=== PATIENT | male | born 2000 | race Caucasian/White ===

== ENCOUNTER 2023-05-14 19:53 | Emergency (ER) | payer SELFPAY ==
[2023-05-14 20:25] VITALS: BP 113/62; PULSE 67; RESP 16; TEMP 37.1; O2SAT 99; BMI 18.2
--- NOTE | 2023-05-14 20:28 | ED.GENADULT ---
HPI - General Adult General Chief complaint: Animal Bite Stated complaint: Laceration on mouth Time Seen by Provider: 05/14/23 20:57 Source: patient and family Mode of arrival: ambulatory Limitations: no limitations History of Present Illness HPI narrative: In comes to the emergency room accompanied by his mother. Earlier today, patient has dogs got into a fight, patient tried breaking up a fight, in the process he got bitten in the lower lip. Patient states that he is up-to-date with his immunizations including Tdap. Also, patient states that his dogs are up to date with her immunizations including rabies. Related Data Previous Rx's Medication Instructions Recorded amoxicillin 500 mg-potassium 1 tab PO BID #13 tabs 05/14/23 clavulanate 125 mg tablet (Augmentin) Allergies Allergy/AdvReac Type Severity Reaction Status Date / Time No Known Allergies Allergy Verified 05/14/23 20:25 [No Known Allergies*] Review of Systems Review of Systems: Constitutional : No Weight loss, No Fever, No Chills, No Night Sweats, No Fatigue, No Malaise ENT/Mouth : No Hearing loss, No Ear Pain, No Nasal Congestion, No Sinus Pain, No Hoarseness, No sore throat, No Rhinorrhea, No Swallowing Difficulty Eyes: No Eye Pain, No Swelling, No Redness, No Foreign Body, No Discharge, No Vision Changes Cardiovascular : No Chest Pain, No SOB, No Dyspnea on Exertion, No Orthopnea, No Edema, No Palpitations Respiratory : No Cough, No Sputum, No Wheezing, No Smoke Exposure, No Dyspnea Gastrointestinal : No Nausea, No Vomiting, No Diarrhea, No Constipation, No abdominal Pain, No Hematochezia, No Melena Genitourinary : no irregular bleeding, No Dysuria, No Urinary Frequency, No Hematuria, No Urinary Incontinence, No Urgency, No Flank Pain, No Urinary Flow Changes, No Hesitancy Musculoskeletal : No joint pain, No Myalgias, No Joint Swelling Skin : 0.5 cm vertical laceration in lower lip Neuro : No Weakness, No Numbness, No Paresthesias, No Loss of Consciousness, No Dizziness, No Headache Psych : No Anxiety/Panic, No Depression, No SI/HI/AH/VH, No Social Issues, Heme/Lymph: No Bruising, No Bleeding,No Lymphadenopathy Endocrine : No Polyuria, No Polydipsia, No Temperature Intolerance [facility] Social History Social History Advance Directives: No Advance Directives Information Provided: Yes Physical Exam ED Vital Signs: Vital Signs - 24 hr 05/14/23 20:25 Temperature 98.7 F Pulse Rate 67 Respiratory Rate 16 Blood Pressure 113/62 Pulse Oximetry 99 Oxygen Delivery Method Room Air BMI result Body Mass Index 18.2 Const Other: Appearance: Alert. Oriented X3. No acute distress. Eyes: Pupils equal, round and reactive to light. ENT: Pharynx normal. In the lower lip, there is a 0.5 cm vertical puncture wound/laceration/dog bite Neck: Normal inspection. Neck supple. No lymph nodes noted. No crepitus CVS: Normal heart rate and rhythm. Pulses normal. Normal S1 and S2 Respiratory: No respiratory distress. Breath sounds normal. No Wheezing. No rales Abdomen: Soft and nontender. No rigidity. No distention. Skin: Skin warm and dry. Normal skin color. Normal skin turgor. Extremities: No lower extremity edema. No Lacerations. No Rash Neuro: Oriented X 3. No motor deficit. No sensory deficit. Moving all extremities. No slurred speech. CN 2 through 12 grossly intact Psych: calm, cooperative, normal affect Course Course Course Narrative: This is an RME: Additional HPI, ROS, PE not included below will be deferred to primary provider. This is a 22-year-old male presenting to the emergency department with complaints of lower lip laceration since today. Patient states that he was breaking up a fight between his dogs and a dog bit his lower lip. Dog is up-to-date with rabies. Laceration likely needs suturable repair. Plan: Further ER evaluation needed with wound repair. - Procedures Laceration Laceration 1: Site: lip Size (cm): 0.5 Description: linear Depth: simple, single layer Amount of anesthesia used (mL): 1 Skin layer closed with: nylon Size (cm): 6-0 Number of sutures: 3 Medical Decision Making Medical Decision Making [facility] Narrative: -patient receive a dose of Augmentin in the ED -patient id 3 stitches, tolerated well the procedure Discharge Plan Discharge Clinical Impression: Laceration of lower lip, Dog bite Patient Disposition: Home, Self-Care Instructions: Animal Bite (ED), Care For Your Stitches (ED) Additional Instructions: Your stitches need to be removed in 7-10 days. Make sure you finish the entire course of antibiotics. For stitches removal, it can be done at your primary care physician's office, urgent care or in the emergency room. Please follow-up with your primary care physician tomorrow. If you have any worsening or new symptoms, please return to the emergency room or call 911 Prescriptions: New amoxicillin-pot clavulanate [Augmentin] 500-125 mg tablet 1 tab PO BID Qty: 13 0RF
--- NOTE | 2023-05-14 21:00 | PC.NURSE ---
this rn assumed care of pt. pt reports being at home when his dogs began fighting and he tried to break up the dog fight. pt dog bit pt in the lower lip. small laceration noted on pt lower lip, bleeding controlled at this time. pt able to speak in full sentences, nuero assessment in tact.
--- NOTE | 2023-05-14 21:46 | PC.NURSE ---
dr. montilla at bedside stitching up pt lip laceration.
[2023-05-14 22:07] VITALS: BP 110/69; PULSE 62; RESP 15; TEMP 37.4; O2SAT 99
--- NOTE | 2023-05-14 22:21 | PC.NURSE ---
dr. phelan placed 3 stitches on pt lower lip.
== END 2023-05-14 22:29 | disposition home or self-care (01) ==
PROVIDERS: Emergency Provider Emergency Medicine; PCP Internal Medicine
DX: S01.511A Laceration without foreign body of lip, initial encounter (principal); W54.0XXA Bitten by dog, initial encounter; Y93.89 Activity, other specified; Y92.9 Unspecified place or not applicable; Y99.9 Unspecified external cause status
CPT/HCPCS: 12011; 99284

== ENCOUNTER 2023-05-21 16:18 | Emergency (ER) | payer SELFPAY ==
[2023-05-21 16:55] VITALS: BP 104/68; PULSE 63; RESP 17; TEMP 36.4; O2SAT 99; BMI 18.2
--- NOTE | 2023-05-21 16:55 | ED.WOUNDLAC ---
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 Patient had 3 sutures placed on May 14 to the lower lip. Patient reports 1 suture fell out prior to arrival. No additional complaints. Taking augmentin as prescribed. Related Data Previous Rx's Medication Instructions Recorded amoxicillin 500 mg-potassium 1 tab PO BID #13 tabs 05/14/23 clavulanate 125 mg tablet (Augmentin) Allergies Allergy/AdvReac Type Severity Reaction Status Date / Time No Known Allergies Allergy Verified 05/14/23 20:25 [No Known Allergies*] Review of Systems Review of Systems: Yes all other systems are reviewed and are negative Constitutional: Constitutional: Reports no additional constitutional complaints, Denies body ache(s), Denies chills, Denies fever(s), Denies headache(s) and Denies weakness Eyes: Eyes: Reports no additional eye complaints and Denies change in vision ENT: Reports system reviewed and no additional complaints, except as documented, Denies dizziness, Denies headache(s), Denies nasal congestion, Denies nasal discharge and Denies neck pain Cardiovascular: Cardiovascular: Reports no additional cardiovascular complaints, Denies chest pain, Denies leg edema and Denies dyspnea Respiratory: Respiratory: Reports no additional respiratory complaints, Denies cough and Denies dyspnea Gastrointestinal: Gastrointestinal: Reports no additional gastrointestinal complaints, Denies abdominal pain, Denies diarrhea, Denies nausea and Denies vomiting Genitourinary: Genitourinary: Denies urinary incontinence Musculoskeletal: Musculoskeletal: Reports no additional musculoskeletal complaints, Denies back pain, Denies arthralgias, Denies joint swelling, Denies neck pain, Denies numbness and Denies tingling Integumentary/Breasts: Skin/Breast: Reports system reviewed and no additional complaints, except as docu and Denies rash Neurologic: Reports system reviewed and no additional complaints, except as documented, Denies Abnormal speech present, Denies dizziness, Denies headache(s), Denies numbness, Denies tingling and Denies weakness [facility] Past Medical History Attestation statement: The following information was validated with the patient. Source: old records reviewed and nursing notes reviewed Physical Exam Vital Signs: Vital Signs: Last Vital Signs Temp 97.5 F 05/21/23 16:55 Pulse 63 05/21/23 16:55 Resp 17 05/21/23 16:55 BP 104/68 05/21/23 16:55 Pulse Ox 99 05/21/23 16:55 O2 Del Method Room Air 05/21/23 16:55 BMI result Body Mass Index 18.2 Const: General: cooperative, healthy appearing, comfortable and no acute distress Orientation/consciousness: patient oriented x3 Limitations: no limitations HEENT: Head: Yes normal to inspection Ears: hearing grossly normal bilaterally General nose exam: Normal external nose present Nose image: 1. 2 sutures present. Edges are approximated. No fluctuance, induration, drainage. Face and sinus: Yes normal facial exam Mouth: Normal oral and palatal mucosa present Throat: Yes posterior oropharynx normal Eyes: General: appearance normal, both eyes and all related structures Pupils: Equal, round and reactive pupils present Neck: Neck: Yes normal visual inspection Chest: Chest palpation & inspection: normal inspection of the chest Resp: Effort & Inspection: normal respiratory effort Auscultation: clear to auscultation bilaterally Cardio: Rate: regular rate Rhythm: regular rhythm Peripheral pulses: Peripheral pulses 2+ throughout GI: Inspection: Yes normal to inspection Palpation (GI): Soft to palpation and nontender Auscultation: normal bowel sounds Back/Spine/Pelvis: Thoracic/Lumbar Spine: thoracic and lumbar spine normal to inspection Skin: General skin exam: no rashes or lesions noted Neuro: General: patient oriented x3, no focal motor deficits and normal sensation to monofilament Cranial nerves: Yes Equal, round and reactive pupils present Cognition (Neuro): normal cognition Speech: No Abnormal speech present Gait exam (Neuro): Normal gait present Motor exam (neuro): 5/5 motor strength present throughout Extrem: General: Yes normal to inspection Medical Decision Making Medical Decision Making MDM Narrative: 22-year-old male here for suture removal. Patient had 3 sutures placed on May 14 to the lower lip. Patient reports 1 suture fell out prior to arrival. No additional complaints. Taking augmentin as prescribed. Differential Diagnosis Differential Diagnoses: The differential diagnosis associated with the presentation includes suture removal External Record Review External record reviewed: Outpatient record Prescription Management I considered prescription management with: Antibiotic Already on Augmentin. No signs of infection. Procedures Procedure Narrative Procedure Narrative: Two sutures removed from lower lip with no complication Discharge Plan Discharge Clinical Impression: Encounter for removal of sutures Patient Disposition: Home, Self-Care Instructions: Stitches Removal (ED) Prescriptions: No Action amoxicillin-pot clavulanate [Augmentin] 500-125 mg tablet 1 tab PO BID Qty: 13 0RF Referrals: Physician,Betyt J [Primary Care Provider] - 1 week
== END 2023-05-21 17:06 | disposition home or self-care (01) ==
LOC: HO.ED 17:03
PROVIDERS: Emergency Provider Emergency Medicine
DX: S01.511D Laceration without foreign body of lip, subsequent encounter (principal); X58.XXXD Exposure to other specified factors, subsequent encounter; Z48.02 Encounter for removal of sutures
CPT/HCPCS: 99282

== ENCOUNTER 2024-03-24 12:09 | Emergency (ER) | payer OTHER, SELFPAY ==
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
[2024-03-24 12:10] VITALS: BP 129/82; PULSE 97; RESP 17; TEMP 37.4; O2SAT 97; BMI 18.3
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
[2024-03-24 13:30] LABS: MANUAL DIFF FLAG NO
[2024-03-24 13:32] LABS: Basophils Percent Auto 0.2 % (0-2); Eosinophils Percent Auto 0.1 % (0-4); Hematocrit 43.7 % (42.0-52.0); Hemoglobin 14.9 g/dl (14.0-18.0); Imm Gran Abs Auto 0.05 X10*3/uL (0.00-0.03); Imm Gran Pct Auto 0.5 % (0.0-0.4); Lymphocytes Absolute Auto 0.8 X10*3/uL (1.2-4.9); Lymphocytes Percent Auto 7.6 % (20-40); Mean Corpuscular HGB Conc 34.1 g/dl (31.0-36.0); Mean Corpuscular Hemoglobin 28.3 pg (27.0-33.0); Mean Corpuscular Volume 82.9 fL (80.0-98.0); Mean Platelet Volume 9.6 fL (9.4-12.4); Monocytes Absolute Auto 1.1 X10*3/uL (0.1-1.2); Monocytes Percent Auto 10.2 % (2-11); Neutrophils Absolute Auto 8.5 x10*3/uL (2.0-8.3); Neutrophils Percent Auto 81.4 % (45-73); Platelet Count 155 X10*3/uL (160-400); Red Blood Count 5.27 X10*6/uL (4.60-5.80); Red Cell Distribution Width 12.9 % (11.0-16.0); White Blood Count 10.4 X10*3/uL (4.8-10.8)
[2024-03-24 13:48] LABS: Alanine Aminotransferase 17 U/L (0-40); Albumin Level 4.6 g/dL (3.5-5.0); Alkaline Phosphatase 70 U/L (39-117); Anion Gap 14 (12-20); Aspartate Amino Transferase 23 U/L (5-37); Bilirubin Total 1.2 mg/dL (0.0-1.0); Blood Urea Nitrogen 13 mg/dL (9-16); Carbon Dioxide 27 mmol/L (22-29); Chloride 104 mmol/L (96-108); Creatinine Clr Calc Pharmacy 90.8; Estimated Glomerular Filt Rate > 60; Glucose Random 103 mg/dL (60-115); Lipase 48 U/L (8-78); Potassium 3.8 mmol/L (3.3-5.1); Sodium 141 mmol/L (135-145)
[2024-03-24] MEDS: iohexoL 350 MG/ML 75 ML INFUS..BTL 85 ML IV (14:03)
[2024-03-24 15:19] VITALS: BP 114/59; PULSE 84; RESP 18; TEMP 36.6; O2SAT 97
[2024-03-24 16:09] VITALS: BP 114/59; PULSE 84; RESP 18; TEMP 36.6; O2SAT 97
== END 2024-03-24 16:10 | disposition home or self-care (01) ==
PROVIDERS: Physician Assistant Medical; Emergency Provider Emergency Medicine
DX: S16.1XXA Strain of muscle, fascia and tendon at neck level, initial encounter (principal); S13.4XXA Sprain of ligaments of cervical spine, initial encounter; V43.52XA Car driver injured in collision with other type car in traffic accident, initial encounter; Y93.89 Activity, other specified; Y92.414 Local residential or business street as the place of occurrence of the external cause; Y99.9 Unspecified external cause status
CPT/HCPCS: 36415; 70450; 72125; 74177; 80053; 83690; 85025; 99284; Q9967